=== PATIENT | male | born 1975 | race Hispanic/Latino ===

== ENCOUNTER 2022-10-02 06:15 | Inpatient (IN) | payer OTHER ==
[~2022-10-02] VITALS: Ht 180.3 cm; Wt 111.6 kg
[2022-10-02 16:00] VITALS: BP 129/63
[2022-10-02 16:10] LABS: ABG BASE EXCESS 2.3 mmol/L (-2.0-3.0); ABG HCO3 24.5 mmol/L (21.0-28.0); ABG OXYGEN SATURATION 93.2 % (95.0-99.0); ABG PCO2 32 mmHg (35-48)
[2022-10-02 16:26] LABS: HEMATOCRIT 32.8 % (42-54); MEAN CORPUSCULAR HEMOGLOBIN 35.2 pg (27.0-33.0); MEAN CORPUSCULAR HGB CONC 34.8 g/dL (32.0-36.0); MEAN CORPUSCULAR VOLUME 101.2 fL (79-99); RED BLOOD CELL COUNT(AUTO) 3.24 MIL/uL (4.50-6.20); RED CELL DISTRIBUTION WIDTH 13.5 % (11.0-15.5)
[2022-10-02 16:40] LABS: HEMOGLOBIN A1C 6.2 % (4.0-6.0)
[2022-10-02 16:48] LABS: INR 1.19 (0.85-1.15); PROTHROMBIN TIME 12.8 SEC (9.6-11.6)
[2022-10-02 16:50] LABS: PARTIAL THROMBOPLASTIN TIME 31.9 SEC (26.3-35.5)
[2022-10-02 17:09] LABS: ALBUMIN 2.1 g/dL (3.5-5.0); CREATININE 0.7 mg/dL (0.5-1.5); POTASSIUM 3.6 mmol/L (3.5-5.1); TOTAL PROTEIN, SERUM 7.9 g/dL (6.0-8.3)
[2022-10-02] MEDS ORDERED: GENT80I IV (17:22)
[2022-10-02] MEDS ORDERED: REMD100V IV (17:22)
[2022-10-02] MEDS ORDERED: ERGO50CA PO (17:22)
[2022-10-02] MEDS ORDERED: NS1000 IV (17:22)
[2022-10-02] MEDS ORDERED: GUAIF10 PO (17:22)
[2022-10-02] MEDS ORDERED: ATOR20TA PO (17:22)
[2022-10-02] MEDS ORDERED: FAMO-136 PO (17:22)
[2022-10-02] MEDS ORDERED: ACET-2247 PO (17:22)
[2022-10-02] MEDS ORDERED: HEPAR25KIV IV (17:22)
[2022-10-02] MEDS ORDERED: FOLI1 PO (17:22)
[2022-10-02] MEDS ORDERED: IBUP-1673 PO (17:22)
[2022-10-02] MEDS ORDERED: ASPI-1005 PO (17:22)
[2022-10-02] MEDS ORDERED: ONDA22I IVP (17:22)
[2022-10-02] MEDS ORDERED: FURO10VI4 IV (17:22)
[2022-10-02] MEDS ORDERED: MAGN400T7 PO (17:22)
[2022-10-02] MEDS ORDERED: THIA100T75 PO (17:22)
[2022-10-02] MEDS ORDERED: BENZ-39 PO (17:22)
[2022-10-02] MEDS ORDERED: DILT120T15 PO (17:22)
[2022-10-02] MEDS ORDERED: ALBU2.5V2 IH (17:22)
[2022-10-02] MEDS ORDERED: CEFX2I IM (17:22)
[2022-10-02] MEDS ORDERED: NITR0.4T SL (17:22)
[2022-10-02 17:59] LABS: INR 1.27 (0.85-1.15); PROTHROMBIN TIME 13.7 SEC (9.6-11.6)
[2022-10-02 18:00] LABS: PARTIAL THROMBOPLASTIN TIME 58.8 SEC (26.3-35.5)
[2022-10-02] MEDS ORDERED: LACTULOSE 20 GM/30 ML UDCUP PO PRN ×2 (18:30)
[2022-10-02] MEDS ORDERED: CLONIDINE HCL 0.1 MG TABLET PO PRN (18:30)
[2022-10-02] MEDS ORDERED: ONDANSETRON 4MG INJ IVP PRN ×2 (18:30→19:00)
[2022-10-02] MEDS ORDERED: ACETAMINOPHEN 650 MG SUPPOSITORY RC PRN (18:30)
[2022-10-02] MEDS ORDERED: HYDRALAZINE 20MG/ML VIAL IV PRN (18:30)
[2022-10-02] MEDS ORDERED: ACETAMINOPHEN 325 MG TAB PO PRN (18:30)
[2022-10-02] MEDS ORDERED: DEXAMETHASONE SOD PHOSPHATE 4 MG/ML 1ML VIAL IVP SCH (18:50)
[2022-10-02] MEDS ORDERED: NITROGLYCERIN 0.4 MG SL TAB SL PRN (19:00)
[2022-10-02] MEDS ORDERED: IBUPROFEN 600 MG TABLET PO PRN (19:00)
[2022-10-02] MEDS ORDERED: GENTAMICIN SULFATE 80 MG/2 ML VIAL IV SCH (19:00)
[2022-10-02] MEDS ORDERED: BENZONATATE 100 MG CAPSULE PO PRN (19:00)
[2022-10-02] MEDS ORDERED: GUAIFENESIN SUGAR-FREE 100 MG/5 ML UDCUP PO PRN (19:00)
[2022-10-02 20:00] VITALS: BP 111/57
[2022-10-02] MEDS: INSULIN HUMULIN R 100 UNIT/ML 3ML SQ SCH (21:00)
[2022-10-02] MEDS: ATORVASTATIN 20 MG TABLET PO SCH (22:06)
[2022-10-02] MEDS: MAGNESIUM OXIDE 400 MG TABLET PO SCH (22:06)
[2022-10-02] MEDS: FAMOTIDINE 20MG TAB PO SCH (22:06)
[2022-10-02] MEDS: GENTAMICIN 80 MG/NS 100 ML PB 100 ML IV SCH (22:06)
[2022-10-02] MEDS: CEFTRIAXONE 2GM VIAL IVPB SCH (22:06)
[2022-10-02] MEDS: DILTIAZEM 120MG SR CAP PO SCH (22:07)
[2022-10-02 23:18] VITALS: BP 113/54
[2022-10-03 00:10] LABS: INR 1.25 (0.85-1.15); PROTHROMBIN TIME 13.5 SEC (9.6-11.6)
[2022-10-03 00:11] LABS: PARTIAL THROMBOPLASTIN TIME 66.1 SEC (26.3-35.5)
[2022-10-03] MEDS: HEPARIN 25,000 UNITS/250ML D5W 250 ML IV SCH ×2 (00:22→15:05)
[2022-10-03 04:36] LABS: BASOPHILS % (AUTO) 0.2 % (0.0-5.0); HEMATOCRIT 33.8 % (42-54); LYMPHOCYTES % (AUTO) 9.2 % (21.0-51.0); MEAN CORPUSCULAR HEMOGLOBIN 34.8 pg (27.0-33.0); MEAN CORPUSCULAR HGB CONC 34.3 g/dL (32.0-36.0); MEAN CORPUSCULAR VOLUME 101.5 fL (79-99); MONOCYTES % (AUTO) 1.6 % (3.0-13.0); NEUTROPHILS % (AUTO) 88.4 % (40.0-77.0); PLATELET COUNT (AUTO) 198 K/uL (130-400); RED BLOOD CELL COUNT(AUTO) 3.33 MIL/uL (4.50-6.20); RED CELL DISTRIBUTION WIDTH 13.8 % (11.0-15.5); WHITE BLOOD COUNT (AUTO) 8.8 K/uL (4.8-10.8)
[2022-10-03 04:39] VITALS: BP 109/51
[2022-10-03 04:44] LABS: INR 1.26 (0.85-1.15); PROTHROMBIN TIME 13.6 SEC (9.6-11.6)
[2022-10-03 04:46] LABS: PARTIAL THROMBOPLASTIN TIME 53.3 SEC (26.3-35.5)
[2022-10-03 05:18] LABS: CREATININE 0.7 mg/dL (0.5-1.5); MAGNESIUM 1.5 mg/dL (1.80-2.40); POTASSIUM 4.3 mmol/L (3.5-5.1); THYROID STIMULATING HORMONE 0.42 uIU/mL (0.36-3.74)
[2022-10-03] MEDS: MAGNESIUM OXIDE 400 MG TABLET PO SCH ×3 (05:27→20:46)
[2022-10-03] MEDS: GENTAMICIN 80 MG/NS 100 ML PB 100 ML IV SCH ×3 (05:27→20:59)
[2022-10-03] MEDS: INSULIN HUMULIN R 100 UNIT/ML 3ML SQ SCH ×4 (05:28→21:00)
[2022-10-03 08:00] VITALS: BP 120/64
[2022-10-03] MEDS ORDERED: FUROSEMIDE 40MG VIAL IV SCH (09:00)
[2022-10-03] MEDS ORDERED: [UNRECOGNIZED DRUG - REMARK] IJ SCH (09:00)
[2022-10-03] MEDS: POLYETHYLENE GLYCOL 3350 17 GM POWD.PACK PO SCH (10:26)
[2022-10-03] MEDS: FOLIC ACID 1 MG TABLET PO SCH (10:26)
[2022-10-03] MEDS: THIAMINE HCL 100 MG TABLET PO SCH (10:26)
[2022-10-03] MEDS: FAMOTIDINE 20MG TAB PO SCH ×2 (10:26→20:46)
[2022-10-03] MEDS: ASPIRIN 81MG CHEW TAB PO SCH (10:27)
[2022-10-03] MEDS: DILTIAZEM 120MG SR CAP PO SCH ×2 (10:34→20:47)
[2022-10-03] MEDS: DEXAMETHASONE SOD PHOSPHATE 4 MG/ML 1ML VIAL IVP SCH (10:34)
[2022-10-03] MEDS ORDERED: AMIODARONE 150MG VIAL IV SCH (11:00)
[2022-10-03 12:00] VITALS: BP 111/51
[2022-10-03] MEDS ORDERED: IOHEXOL-350 75 ML VIAL IV ONE (14:55)
[2022-10-03] MEDS ORDERED: IOHEXOL 350 MG/ML 100ML INFUS..BTL IV ONE (14:55)
[2022-10-03] MEDS: PANTOPRAZOLE 40 MG TAB DR PO SCH (15:20)
[2022-10-03] MEDS ORDERED: METOPROLOL TARTRATE 1 MG/ML 5ML VIAL IV ONE ×2 (15:28→15:43)
[2022-10-03 16:00] VITALS: BP 106/45
[2022-10-03] MEDS ORDERED: FUROSEMIDE 40MG VIAL IV ONE (17:00)
[2022-10-03 17:17] VITALS: BP 106/36
[2022-10-03 17:58] LABS: INR 1.41 (0.85-1.15); PROTHROMBIN TIME 15.1 SEC (9.6-11.6)
[2022-10-03 17:59] LABS: PARTIAL THROMBOPLASTIN TIME 40.3 SEC (26.3-35.5)
[2022-10-03] MEDS ORDERED: OXYMETAZOLINE HCL SPRAY 15 ML BOTTLE EN ONE (18:00)
[2022-10-03 19:00] VITALS: BP 118/55
[2022-10-03] MEDS ORDERED: LORAZEPAM 2 MG/ML 1 ML VIAL IM PRN (20:30)
[2022-10-03] MEDS ORDERED: LORAZEPAM 2 MG/ML 1 ML VIAL ONE (20:38)
[2022-10-03] MEDS: LACTULOSE 20 GM/30 ML UDCUP PO SCH (20:45)
[2022-10-03] MEDS: ATORVASTATIN 20 MG TABLET PO SCH (20:46)
[2022-10-03] MEDS: CEFTRIAXONE 2GM VIAL IVPB SCH (20:51)
[2022-10-03] MEDS ORDERED: INSULIN GLARGINE 100 UNITS/ML 10 ML VIAL SQ SCH (21:00)
[2022-10-03 21:09] LABS: ABG BASE EXCESS 2.2 mmol/L (-2.0-3.0); ABG HCO3 26.2 mmol/L (21.0-28.0); ABG OXYGEN SATURATION 98.3 % (95.0-99.0); ABG PCO2 39 mmHg (35-48)
[2022-10-03] MEDS ORDERED: LORAZEPAM 2 MG/ML 1 ML VIAL IVP PRN (21:30)
[2022-10-03] MEDS ORDERED: CHLORDIAZEPOXIDE HCL 25 MG CAP PO ONE (22:00)
[2022-10-03] MEDS ORDERED: HALOPERIDOL INJ 5 MG/ML VIAL IM ONE (23:00)
[2022-10-03 23:32] LABS: ABG BASE EXCESS -0.3 mmol/L (-2.0-3.0); ABG HCO3 26.9 mmol/L (21.0-28.0); ABG PCO2 55 mmHg (35-48)
[2022-10-03] MEDS ORDERED: DEXMEDETOMIDINE 400MCG/NS100ML IV ONE (23:42)
[2022-10-04] VITALS (99 sets, daily range): BP systolic 78–155; BP diastolic 26–88
[2022-10-04 00:29] LABS: INR 1.33 (0.85-1.15); PROTHROMBIN TIME 14.3 SEC (9.6-11.6)
[2022-10-04 00:30] LABS: PARTIAL THROMBOPLASTIN TIME 31.1 SEC (26.3-35.5)
[2022-10-04] MEDS ORDERED: NOREPINEPHRIN 4MG/NS 250ML 250 ML IV ONE (00:31)
[2022-10-04] MEDS ORDERED: PROPOFOL 1000 MG/100 ML 100 ML IV ONE (00:48)
[2022-10-04] MEDS ORDERED: FENTANYL CITRATE PF 0.05 MG/ML 1,000 MCG in 0.9%NACL 100ML 100 ML IVPB PRN (01:00)
[2022-10-04] MEDS ORDERED: FUROSEMIDE 40MG VIAL IV ONE (01:00)
[2022-10-04] MEDS ORDERED: FUROSEMIDE 100MG VIAL ONE (01:02)
[2022-10-04] MEDS ORDERED: DEXMEDETOMIDINE 400MCG/NS100ML IV SCH (01:30)
[2022-10-04] MEDS ORDERED: FUROSEMIDE 100MG VIAL 100 MG in 0.9%NACL 100ML 90 ML IV PRN (01:30)
[2022-10-04 01:59] LABS: ABG BASE EXCESS -3.2 mmol/L (-2.0-3.0); ABG HCO3 23.8 mmol/L (21.0-28.0); ABG OXYGEN SATURATION 92.8 % (95.0-99.0); ABG PCO2 51 mmHg (35-48)
[2022-10-04] MEDS: NOREPINEPHRIN 4MG/NS 250ML 250 ML IV PRN ×4 (03:00→08:46)
[2022-10-04] MEDS: PROPOFOL 1000 MG/100 ML 100 ML IV SCH ×2 (03:56→07:47)
[2022-10-04 04:47] LABS: BASOPHILS % (AUTO) 0.2 % (0.0-5.0); HEMATOCRIT 34.4 % (42-54); LYMPHOCYTES % (AUTO) 4.1 % (21.0-51.0); MEAN CORPUSCULAR HEMOGLOBIN 35.7 pg (27.0-33.0); MEAN CORPUSCULAR HGB CONC 34.9 g/dL (32.0-36.0); MEAN CORPUSCULAR VOLUME 102.4 fL (79-99); MONOCYTES % (AUTO) 7.3 % (3.0-13.0); NEUTROPHILS % (AUTO) 87.2 % (40.0-77.0); PLATELET COUNT (AUTO) 273 K/uL (130-400); RED BLOOD CELL COUNT(AUTO) 3.36 MIL/uL (4.50-6.20); RED CELL DISTRIBUTION WIDTH 14.1 % (11.0-15.5)
[2022-10-04 04:52] LABS: WHITE BLOOD COUNT (AUTO) 33.1 K/uL (4.8-10.8)
[2022-10-04] MEDS: GENTAMICIN 80 MG/NS 100 ML PB 100 ML IV SCH ×2 (05:00→12:25)
[2022-10-04 05:07] LABS: ALBUMIN 2.1 g/dL (3.5-5.0); CREATININE 1.3 mg/dL (0.5-1.5); MAGNESIUM 1.9 mg/dL (1.80-2.40); POTASSIUM 5.4 mmol/L (3.5-5.1); TOTAL PROTEIN, SERUM 8.3 g/dL (6.0-8.3)
[2022-10-04 05:17] LABS: BAND NEUTROPHILS % (MANUAL) 2 % (0-2); LYMPHOCYTES % (MANUAL) 6 % (22-44); MAN.DIFF COMMENT-IMPRESSION MANUAL DIFFERENTIAL; MONOCYTES % (MANUAL) 11 % (2-9); PLATELET MORPHOLOGY COMMENT ADEQUATE; SEGMENTED NEUTROPHILS % 81 % (40-70)
[2022-10-04] MEDS: INSULIN HUMULIN R 100 UNIT/ML 3ML SQ SCH ×4 (06:48→20:43)
[2022-10-04 06:58] LABS: ABG BASE EXCESS -3.5 mmol/L (-2.0-3.0); ABG HCO3 22.5 mmol/L (21.0-28.0); ABG OXYGEN SATURATION 95.2 % (95.0-99.0); ABG PCO2 44 mmHg (35-48)
[2022-10-04] MEDS ORDERED: VANCOMYCIN PROTOCOL PER PHARMACY IV SCH (07:30)
[2022-10-04] MEDS: LACTULOSE 20 GM/30 ML UDCUP PO SCH ×2 (07:38→20:40)
[2022-10-04] MEDS: POLYETHYLENE GLYCOL 3350 17 GM POWD.PACK PO SCH (07:38)
[2022-10-04] MEDS: FAMOTIDINE 20MG TAB PO SCH ×2 (07:39→20:40)
[2022-10-04] MEDS: FOLIC ACID 1 MG TABLET PO SCH (07:39)
[2022-10-04] MEDS: ASPIRIN 81MG CHEW TAB PO SCH (07:39)
[2022-10-04] MEDS: DEXAMETHASONE SOD PHOSPHATE 4 MG/ML 1ML VIAL IVP SCH (07:43)
[2022-10-04] MEDS: THIAMINE HCL 100 MG TABLET PO SCH (07:43)
[2022-10-04] MEDS: DILTIAZEM 120MG SR CAP PO SCH ×2 (07:43→20:41)
[2022-10-04] MEDS: MAGNESIUM OXIDE 400 MG TABLET PO SCH ×3 (07:43→20:40)
[2022-10-04] MEDS: PANTOPRAZOLE 40 MG TAB DR PO SCH (07:47)
[2022-10-04] MEDS: CHLORDIAZEPOXIDE HCL 25 MG CAP PO SCH ×2 (07:49→20:40)
[2022-10-04] MEDS ORDERED: VANCOMYCIN 1.5 GM/250 ML BAG 250 ML IV SCH (08:00)
[2022-10-04] MEDS ORDERED: VASOPRESSIN 20 UNITS in 0.9%NACL 100ML 100 ML IV SCH (08:06)
[2022-10-04] MEDS ORDERED: MIDAZOLAM HCL 1 MG/ML 2ML VIAL IVP SCH (08:52)
[2022-10-04] MEDS ORDERED: MIDAZOLAM HCL 1 MG/ML 2ML VIAL ONE (08:53)
[2022-10-04] MEDS ORDERED: MIDAZOLAM HCL 50 MG in 0.9%NACL 50ML 50 ML IV SCH (09:10)
[2022-10-04] MEDS ORDERED: NOREPINEPHRINE 16MG/NS 250ML PREMIX IV SCH (09:12)
[2022-10-04] MEDS ORDERED: MIDAZOLAM 100MG-0.9% NS 100ML 100 ML IV SCH ×2 (09:30→22:30)
[2022-10-04 09:51] LABS: ALBUMIN 2.2 g/dL (3.5-5.0); CREATININE 1.9 mg/dL (0.5-1.5); MAGNESIUM 1.8 mg/dL (1.80-2.40); PHOSPHORUS 6.2 mg/dL (2.5-4.9); POTASSIUM 4.6 mmol/L (3.5-5.1)
[2022-10-04] MEDS: NS IV SCH (11:34)
[2022-10-04] MEDS: MIDAZOLAM IV SCH (11:34)
[2022-10-04] MEDS: NOREPINEPHRINE 16MG/NS 250ML 250 ML IV SCH ×2 (11:35→16:16)
[2022-10-04] MEDS ORDERED: INSULIN HUMULIN R 100 UNIT/ML 3ML IV SCH (12:00)
[2022-10-04 13:38] LABS: ABG BASE EXCESS -5.6 mmol/L (-2.0-3.0); ABG HCO3 19.2 mmol/L (21.0-28.0); ABG OXYGEN SATURATION 98.4 % (95.0-99.0); ABG PCO2 35 mmHg (35-48)
[2022-10-04] MEDS: MAGNESIUM 2GM PREMIX 50ML 50 ML IV PRN ×2 (13:56→23:09)
[2022-10-04] MEDS ORDERED: FENTANYL CITRATE PF 0.05 MG/ML 1,000 MCG in 0.9%NACL 100ML 100 ML IVPB SCH (14:00)
[2022-10-04] MEDS ORDERED: INSULIN REGULAR, HUMAN 3ML 100 UNIT in 0.9%NACL 100ML 99 ML IV PRN ×2 (14:30)
[2022-10-04] MEDS: FENTANYL 1000MCG+NS 100ML 100 ML IV SCH ×2 (14:56→20:38)
[2022-10-04] MEDS: PHENYLEPHRINE HCL 100 MG in 0.9% NACL 250ML 250 ML IV SCH (15:16)
[2022-10-04] MEDS ORDERED: CEFEPIME HCL 2 GM VIAL IVPB SCH (15:30)
[2022-10-04 16:40] LABS: ALBUMIN 2.2 g/dL (3.5-5.0); CREATININE 2.5 mg/dL (0.5-1.5); MAGNESIUM 2.2 mg/dL (1.80-2.40); PHOSPHORUS 6.8 mg/dL (2.5-4.9); POTASSIUM 4.5 mmol/L (3.5-5.1)
[2022-10-04] MEDS: CEFEPIME HCL 1 GM VIAL IVPB SCH (17:00)
[2022-10-04] MEDS ORDERED: FUROSEMIDE 40MG VIAL IV SCH (17:00)
[2022-10-04] MEDS: VASOPRESSIN 40 UNITS in 0.9%NACL 50ML 40 ML IV SCH (19:30)
[2022-10-04] MEDS: NOREPINEPHRINE BITARTRATE 32 MG in 0.9% NACL 250ML 250 ML IV SCH (19:30)
[2022-10-04] MEDS: FUROSEMIDE 40MG VIAL IV SCH (20:40)
[2022-10-04] MEDS: ATORVASTATIN 20 MG TABLET PO SCH (20:40)
[2022-10-04] MEDS: INSULIN GLARGINE 100 UNITS/ML 10 ML VIAL SQ SCH (20:44)
[2022-10-04] MEDS: VANCOMYCIN 750MG VIAL IVPB SCH (20:49)
[2022-10-04] MEDS: 0.9% NACL 250ML 250 ML IV SCH (20:49)
[2022-10-04 22:16] LABS: ALBUMIN 2.2 g/dL (3.5-5.0); CREATININE 2.4 mg/dL (0.5-1.5); MAGNESIUM 2.4 mg/dL (1.80-2.40); POTASSIUM 4.3 mmol/L (3.5-5.1)
[2022-10-04] MEDS ORDERED: AMIODARONE 150MG VIAL ONE ×2 (23:02→23:30)
[2022-10-04] MEDS ORDERED: AMIODARONE 150MG VIAL 150 MG in DEXTROSE 5%-WATER 100 ML IV PRN (23:30)
[2022-10-05] VITALS (89 sets, daily range): BP systolic 65–151; BP diastolic 33–77
[2022-10-05] MEDS ORDERED: AMIODARONE 900MG VIAL 360 MG in DEXTROSE 5%-WATER 200 ML IV SCH ×2
[2022-10-05] MEDS: PHENYLEPHRINE HCL 100 MG in 0.9% NACL 250ML 250 ML IV SCH ×3 (00:32→17:42)
[2022-10-05] MEDS: CEFEPIME HCL 1 GM VIAL IVPB SCH ×3 (00:36→15:55)
[2022-10-05] MEDS: FENTANYL 1000MCG+NS 100ML 100 ML IV SCH ×4 (03:00→23:00)
[2022-10-05 03:57] LABS: ABG BASE EXCESS -2.2 mmol/L (-2.0-3.0); ABG HCO3 21.9 mmol/L (21.0-28.0); ABG OXYGEN SATURATION 99.7 % (95.0-99.0); ABG PCO2 36 mmHg (35-48)
[2022-10-05] MEDS: NOREPINEPHRINE BITARTRATE 32 MG in 0.9% NACL 250ML 250 ML IV SCH ×2 (04:38→17:41)
[2022-10-05 04:58] LABS: ALBUMIN 2.1 g/dL (3.5-5.0); CREATININE 2.1 mg/dL (0.5-1.5); MAGNESIUM 2.9 mg/dL (1.80-2.40); PHOSPHORUS 5.7 mg/dL (2.5-4.9); POTASSIUM 4.2 mmol/L (3.5-5.1); TOTAL PROTEIN, SERUM 7.9 g/dL (6.0-8.3)
[2022-10-05] MEDS ORDERED: AMIODARONE 900MG VIAL 540 MG in DEXTROSE 5%-WATER 300 ML IV ONE (06:00)
[2022-10-05] MEDS: MIDAZOLAM IV SCH ×3 (07:27→19:04)
[2022-10-05] MEDS: NS IV SCH ×3 (07:27→19:04)
[2022-10-05] MEDS: INSULIN HUMULIN R 100 UNIT/ML 3ML SQ SCH ×4 (07:30→21:00)
[2022-10-05 08:18] LABS: BASOPHILS % (AUTO) 0.2 % (0.0-5.0); HEMATOCRIT 34.7 % (42-54); LYMPHOCYTES % (AUTO) 4.4 % (21.0-51.0); MEAN CORPUSCULAR HEMOGLOBIN 35.2 pg (27.0-33.0); MEAN CORPUSCULAR HGB CONC 33.7 g/dL (32.0-36.0); MEAN CORPUSCULAR VOLUME 104.5 fL (79-99); MONOCYTES % (AUTO) 9.1 % (3.0-13.0); NEUTROPHILS % (AUTO) 85.6 % (40.0-77.0); PLATELET COUNT (AUTO) 273 K/uL (130-400); RED BLOOD CELL COUNT(AUTO) 3.32 MIL/uL (4.50-6.20); RED CELL DISTRIBUTION WIDTH 14.5 % (11.0-15.5); WHITE BLOOD COUNT (AUTO) 26.8 K/uL (4.8-10.8)
[2022-10-05] MEDS: FOLIC ACID 5 MG/ML VIAL IV SCH (09:00)
[2022-10-05] MEDS: IPRATROPIUM 0.5 MG/2.5 ML INH IH SCH ×4 (09:42→21:19)
[2022-10-05] MEDS: ACETYLCYSTEINE 10% 100MG/ML 4ML VIAL IH SCH ×2 (09:42→21:19)
[2022-10-05 10:31] LABS: ALBUMIN 2.3 g/dL (3.5-5.0); CREATININE 2.1 mg/dL (0.5-1.5); MAGNESIUM 3.1 mg/dL (1.80-2.40); PHOSPHORUS 6.7 mg/dL (2.5-4.9); POTASSIUM 4.3 mmol/L (3.5-5.1)
[2022-10-05] MEDS: DEXAMETHASONE SOD PHOSPHATE 4 MG/ML 1ML VIAL IVP SCH (11:19)
[2022-10-05] MEDS: FUROSEMIDE 40MG VIAL IV SCH ×2 (11:19→21:04)
[2022-10-05] MEDS: PANTOPRAZOLE 40 MG TAB DR PO SCH (11:19)
[2022-10-05] MEDS: THIAMINE HCL 100 MG TABLET PO SCH (11:19)
[2022-10-05] MEDS: CHLORDIAZEPOXIDE HCL 25 MG CAP PO SCH ×2 (11:19→21:08)
[2022-10-05] MEDS: THIAMINE HCL 100 MG/ML 2ML VIAL IVP SCH (11:19)
[2022-10-05] MEDS: POLYETHYLENE GLYCOL 3350 17 GM POWD.PACK PO SCH (11:20)
[2022-10-05] MEDS: LACTULOSE 20 GM/30 ML UDCUP PO SCH ×2 (11:20→21:08)
[2022-10-05] MEDS: MAGNESIUM OXIDE 400 MG TABLET PO SCH ×3 (11:20→21:05)
[2022-10-05] MEDS: FAMOTIDINE 20MG TAB PO SCH ×2 (11:20→21:08)
[2022-10-05] MEDS: ASPIRIN 81MG CHEW TAB PO SCH (11:20)
[2022-10-05] MEDS: FOLIC ACID 1 MG TABLET PO SCH (11:20)
[2022-10-05] MEDS: DILTIAZEM 120MG SR CAP PO SCH ×2 (11:21→21:09)
[2022-10-05] MEDS: INSULIN GLARGINE 100 UNITS/ML 10 ML VIAL SQ SCH ×2 (11:29→21:06)
[2022-10-05] MEDS: VANCOMYCIN 750MG VIAL IVPB SCH ×2 (11:37→21:07)
[2022-10-05] MEDS: VASOPRESSIN 40 UNITS in 0.9%NACL 50ML 40 ML IV SCH (13:19)
[2022-10-05 16:31] LABS: ALBUMIN 2.1 g/dL (3.5-5.0); CREATININE 2.3 mg/dL (0.5-1.5); MAGNESIUM 2.9 mg/dL (1.80-2.40); PHOSPHORUS 6.6 mg/dL (2.5-4.9); POTASSIUM 4.4 mmol/L (3.5-5.1)
[2022-10-05] MEDS: ATORVASTATIN 20 MG TABLET PO SCH (21:05)
[2022-10-06] VITALS (30 sets, daily range): BP systolic 74–96; BP diastolic 26–55
[2022-10-06] MEDS: CEFEPIME HCL 1 GM VIAL IVPB SCH ×2 (00:06→09:00)
[2022-10-06 00:29] LABS: ALBUMIN 1.8 g/dL (3.5-5.0); CREATININE 2.9 mg/dL (0.5-1.5); MAGNESIUM 3.1 mg/dL (1.80-2.40); PHOSPHORUS 7.2 mg/dL (2.5-4.9); POTASSIUM 4.9 mmol/L (3.5-5.1)
[2022-10-06] MEDS: IPRATROPIUM 0.5 MG/2.5 ML INH IH SCH ×2 (02:18→06:21)
[2022-10-06] MEDS: MIDAZOLAM IV SCH (03:12)
[2022-10-06] MEDS: NS IV SCH (03:12)
[2022-10-06] MEDS: FENTANYL 1000MCG+NS 100ML 100 ML IV SCH (03:13)
[2022-10-06 06:19] LABS: BASOPHILS % (AUTO) 0.3 % (0.0-5.0); HEMATOCRIT 35.6 % (42-54); LYMPHOCYTES % (AUTO) 7.3 % (21.0-51.0); MEAN CORPUSCULAR HEMOGLOBIN 35.7 pg (27.0-33.0); MEAN CORPUSCULAR VOLUME 111.6 fL (79-99); MONOCYTES % (AUTO) 14.5 % (3.0-13.0); NEUTROPHILS % (AUTO) 76.8 % (40.0-77.0); NUCLEATED RED BLOOD CELLS 0.3 % (0.0-0.19); PLATELET COUNT (AUTO) 232 K/uL (130-400); RED BLOOD CELL COUNT(AUTO) 3.19 MIL/uL (4.50-6.20); WHITE BLOOD COUNT (AUTO) 23.1 K/uL (4.8-10.8)
[2022-10-06] MEDS: ACETYLCYSTEINE 10% 100MG/ML 4ML VIAL IH SCH (06:21)
[2022-10-06 06:51] LABS: ALBUMIN 1.9 g/dL (3.5-5.0); CREATININE 4.3 mg/dL (0.5-1.5); MAGNESIUM 3.4 mg/dL (1.80-2.40); POTASSIUM 4.9 mmol/L (3.5-5.1); TOTAL PROTEIN, SERUM 7.2 g/dL (6.0-8.3)
[2022-10-06] MEDS: INSULIN HUMULIN R 100 UNIT/ML 3ML SQ SCH (07:30)
[2022-10-06] MEDS: PHENYLEPHRINE HCL 100 MG in 0.9% NACL 250ML 250 ML IV SCH (08:23)
[2022-10-06] MEDS: INSULIN GLARGINE 100 UNITS/ML 10 ML VIAL SQ SCH (09:00)
[2022-10-06] MEDS: DILTIAZEM 120MG SR CAP PO SCH (09:00)
[2022-10-06] MEDS: FOLIC ACID 5 MG/ML VIAL IV SCH (09:00)
[2022-10-06] MEDS: THIAMINE HCL 100 MG/ML 2ML VIAL IVP SCH (09:00)
[2022-10-06] MEDS: ASPIRIN 81MG CHEW TAB PO SCH (09:00)
[2022-10-06] MEDS: LACTULOSE 20 GM/30 ML UDCUP PO SCH (09:00)
[2022-10-06] MEDS: FOLIC ACID 1 MG TABLET PO SCH (09:00)
[2022-10-06] MEDS: POLYETHYLENE GLYCOL 3350 17 GM POWD.PACK PO SCH (09:00)
[2022-10-06] MEDS: VANCOMYCIN 750MG VIAL IVPB SCH (09:00)
[2022-10-06] MEDS: PANTOPRAZOLE 40 MG TAB DR PO SCH (09:00)
[2022-10-06] MEDS: CHLORDIAZEPOXIDE HCL 25 MG CAP PO SCH (09:00)
[2022-10-06] MEDS: DEXAMETHASONE SOD PHOSPHATE 4 MG/ML 1ML VIAL IVP SCH (09:00)
[2022-10-06] MEDS: MAGNESIUM OXIDE 400 MG TABLET PO SCH (09:00)
[2022-10-06] MEDS: FAMOTIDINE 20MG TAB PO SCH (09:00)
[2022-10-06] MEDS: THIAMINE HCL 100 MG TABLET PO SCH (09:00)
[2022-10-06] MEDS: 0.9% NACL 250ML 250 ML IV SCH (09:40)
[2022-10-08] MEDS ORDERED: ERGOCALCIFEROL 50 MCG PO SCH (09:00)
== END 2022-10-06 15:16 | DRG 871 ==
LOC: 4AH 13:23 → 2DH 10-03 17:23 → 2BH 10-04 00:29
PROVIDERS: ADMIT Internal Medicine Critical Care Medicine; ATTEND Internal Medicine Critical Care Medicine
PROC: 5A09357 Assistance with Respiratory Ventilation, Less than 24 Consecutive Hours, Continuous Positive Airway Pressure (ICD-10-PCS; 2022-10-03)
PROC: 5A1945Z Respiratory Ventilation, 24-96 Consecutive Hours (ICD-10-PCS; principal; 2022-10-04)
PROC: 0BH17EZ Insertion of Endotracheal Airway into Trachea, Via Natural or Artificial Opening (ICD-10-PCS; 2022-10-04)
PROC: 5A09357 Assistance with Respiratory Ventilation, Less than 24 Consecutive Hours, Continuous Positive Airway Pressure (ICD-10-PCS; 2022-10-04)
DX: A40.8 Other streptococcal sepsis (principal); I21.4 Non-ST elevation (NSTEMI) myocardial infarction; J12.82 Pneumonia due to coronavirus disease 2019; I33.0 Acute and subacute infective endocarditis; U07.1 COVID-19; J80 Acute respiratory distress syndrome; R65.21 Severe sepsis with septic shock; N17.9 Acute kidney failure, unspecified; I48.91 Unspecified atrial fibrillation; K74.60 Unspecified cirrhosis of liver; E66.01 Morbid (severe) obesity due to excess calories; E78.5 Hyperlipidemia, unspecified; F17.210 Nicotine dependence, cigarettes, uncomplicated; F10.10 Alcohol abuse, uncomplicated; F14.10 Cocaine abuse, uncomplicated; I11.0 Hypertensive heart disease with heart failure; I35.1 Nonrheumatic aortic (valve) insufficiency; N47.1 Phimosis; Z79.899 Other long term (current) drug therapy; Z95.2 Presence of prosthetic heart valve; Z68.34 Body mass index [BMI] 34.0-34.9, adult
CPT/HCPCS: 31500; 36415; 36600; 70450; 71045; 71270; 74178; 80048; 80053; 80061; 80069; 82140; 82247; 82435; 82803; 82947; 82948; 83036; 83605; 83735; 83880; 84100; 84132; 84155; 84295; 84443; 84450; 84460; 84484; 85007; 85018; 85025; 85027; 85610; 85730; 86850; 86900; 86901; 87040; 93005; 93306; 94002; 94003; 94640; 94660; 94664; A4344; G0378; J0282; J0692; J0696; J1100; J1580; J1630; J1644; J1815; J1940; J2060; J2250; J2370; J2405; J2704; J3010; J3411; J3475; J3490; J7050; J7060; J7608; Q9967